=== PATIENT | male | born 2000 | race Hispanic/Latino ===

== ENCOUNTER 2021-02-24 18:02 | Emergency (ER) | payer SELFPAY ==
[2021-02-24] MEDS ORDERED: ALBUTEROL INHALER 60 PUFF/8 GM IH ONE (20:02)
[2021-02-24 20:24] LABS: Absolute Lymphocytes (CBC) 1.2 K/uL (0.7-4.9); Basophils % 0.4 % (0-1.3); Hematocrit 40.7 % (39.6-49.0); MPV 9.8 fL (7.6-11.3); RBC Red Blood Cell Count 4.42 M/uL (4.33-5.43)
[2021-02-24 20:26] LABS: ALT/SGPT 36 U/L (12-78); AST/SGOT 43 U/L (15-37); Albumin 3.7 g/dL (3.4-5.0); Alkaline Phosphatase 65 U/L (45-117); BUN Blood Urea Nitrogen 10 mg/dL (7-18); Bicarbonate 27 mmol/L (21-32); Bilirubin Direct 0.2 mg/dL (0-0.2); Bilirubin Total 0.9 mg/dL (0.2-1.0); Glucose Level 98 mg/dL (74-106); Magnesium 2.2 mg/dL (1.8-2.4); NT PRO-BNP 11 pg/mL (<125); Potassium 3.5 mmol/L (3.5-5.1); Protein, Total 7.5 g/dL (6.4-8.2); Sodium Level 137 mmol/L (136-145); Troponin (Emerg Dept Use Only) < 0.02 ng/mL (0.0-0.045)
[2021-02-24 20:45] LABS: Protime INR 1.49
[2021-02-24] MEDS ORDERED: NA CHLORIDE 0.9% 1,000 ML ONE (21:01)
--- NOTE | 2021-02-24 21:13 | RAD REPORT ---
EXAM DESCRIPTION: Izabella Single View02/24/2021 8:22 pm CLINICAL HISTORY: Chest pain COMPARISON: none FINDINGS: Lungs are mildly hazy bilaterally. The heart is normal size IMPRESSION: Lungs are mildly hazy. This is equivocal for a mild bilateral pneumonia
--- NOTE | 2021-02-24 23:11 | EDPHYS ---
Physician Documentation [facility] Name: Sheldon Phillips Age: 21 yrs Sex: Male : 2000 Arrival Date: 02/24/2021 Time: 18:05 Bed 19 Private MD: ED Physician Brodie Nye HPI: 02/24 20:11 This 21 yrs old Male presents to ER via Ambulatory with complaints of Covid +, mh7 Shortness Of Breath. 20:11 The patient has shortness of breath with light activity. Onset: The symptoms/episode mh7 began/occurred 3 day(s) ago. Duration: The symptoms are intermittent, with no pattern. The patient's shortness of breath is aggravated by coughing, exertion, light activity. 20:12 Associated signs and symptoms: Pertinent positives: non-productive cough, dizziness, mh7 sore throat, Pertinent negatives: chest pain, productive cough, diaphoresis, fever, hemoptysis, loss of consciousness, nausea, numbness in extremities, visual changes, vomiting. Severity of symptoms: At their worst the symptoms were moderate yesterday, in the emergency department the symptoms have improved moderately. States that he had a positive COVID test today at [facility].. Historical: - Allergies: 18:12 No Known Allergies; ca1 - Home Meds: 18:12 None [Active]; ca1 - PMHx: 18:12 Asthma; ca1 - PSHx: 18:12 None; ca1 - Immunization history:: Client reports having NOT received the Covid vaccine. Flu vaccine is not up to date. - Social history:: Smoking status: Patient denies any tobacco usage or history of. ROS: 20:12 Constitutional: Negative for fever, chills, and weight loss, Eyes: Negative for injury, mh7 pain, redness, and discharge, Neck: Negative for injury, pain, and swelling, Cardiovascular: Negative for chest pain, palpitations, and edema, Abdomen/GI: Negative for abdominal pain, nausea, vomiting, diarrhea, and constipation, Back: Negative for injury and pain, : Negative for injury, bleeding, discharge, and swelling, MS/Extremity: Negative for injury and deformity, Skin: Negative for injury, rash, and discoloration, Neuro: Negative for headache, weakness, numbness, tingling, and seizure, Psych: Negative for depression, anxiety, suicide ideation, homicidal ideation, and hallucinations, Allergy/Immunology: Negative for hives, rash, and allergies, Endocrine: Negative for neck swelling, polydipsia, polyuria, polyphagia, and marked weight changes, Hematologic/Lymphatic: Negative for swollen nodes, abnormal bleeding, and unusual bruising. Exam: 20:12 Constitutional: This is a well developed, well nourished patient who is awake, alert, mh7 and in no acute distress. Head/Face: Normocephalic, atraumatic. Eyes: Pupils equal round and reactive to light, extra-ocular motions intact. Lids and lashes normal. Conjunctiva and sclera are non-icteric and not injected. Cornea within normal limits. Periorbital areas with no swelling, redness, or edema. ENT: Nares patent. No nasal discharge, no septal abnormalities noted. Tympanic membranes are normal and external auditory canals are clear. Oropharynx with no redness, swelling, or masses, exudates, or evidence of obstruction, uvula midline. Mucous membranes moist. Neck: Trachea midline, no thyromegaly or masses palpated, and no cervical lymphadenopathy. Supple, full range of motion without nuchal rigidity, or vertebral point tenderness. No Meningismus. Chest/axilla: Normal chest wall appearance and motion. Nontender with no deformity. No lesions are appreciated. Cardiovascular: Regular rate and rhythm with a normal S1 and S2. No gallops, murmurs, or rubs. Normal PMI, no JVD. No pulse deficits. Respiratory: Lungs have equal breath sounds bilaterally, clear to auscultation and percussion. No rales, rhonchi or wheezes noted. No increased work of breathing, no retractions or nasal flaring. Abdomen/GI: Soft, non-tender, with normal bowel sounds. No distension or tympany. No guarding or rebound. No evidence of tenderness throughout. Back: No spinal tenderness. No costovertebral tenderness. Full range of motion. Skin: Warm, dry with normal turgor. Normal color with no rashes, no lesions, and no evidence of cellulitis. MS/ Extremity: Pulses equal, no cyanosis. Neurovascular intact. Full, normal range of motion. Neuro: Awake and alert, GCS 15, oriented to person, place, time, and situation. Cranial nerves II-XII grossly intact. Motor strength 5/5 in all extremities. Sensory grossly intact. Cerebellar exam normal. Normal gait. Psych: Awake, alert, with orientation to person, place and time. Behavior, mood, and affect are within normal limits. Vital Signs: 18:10 BP 129 / 70; Pulse 108; Resp 20; Temp 97.3(TE); Pulse Ox 98% on R/A; Weight 140.61 kg ca1 (R); Height 6 ft. 1 in. (185.42 cm) (R); Pain 7/10; 19:30 BP 113 / 69; Pulse 110; Resp 25; Pulse Ox 99% ; rr5 20:30 BP 129 / 60; Pulse 98; Resp 19; Pulse Ox 100% ; rr5 21:30 BP 126 / 71; Pulse 91; Resp 18; Pulse Ox 99% ; rr5 22:30 BP 118 / 66; Pulse 97; Resp 24; Pulse Ox 100% ; rr5 23:04 BP 126 / 62; Pulse 95; Resp 22; Pulse Ox 98% ; rr5 18:10 Body Mass Index 40.90 (140.61 kg, 185.42 cm) ca1 MDM: 23:08 Differential diagnosis: Anemia Anxiety Reaction asthma, Bronchitis pneumonia, mh7 Pneumothorax Psychogenic pulmonary edema, Pulmonary Embolism reactive airway disease. Data reviewed: vital signs, nurses notes, lab test result(s), cardiac enzymes, CBC, electrolytes, EKG, radiologic studies, CT scan, plain films. Data interpreted: Pulse oximetry: on room air is 98 %. Interpretation: normal. Counseling: I had a detailed discussion with the patient and/or guardian regarding: the historical points, exam findings, and any diagnostic results supporting the discharge/admit diagnosis, lab results, radiology results, the need for outpatient follow up, to return to the emergency department if symptoms worsen or persist or if there are any questions or concerns that arise at home. Response to treatment: the patient's symptoms have resolved after treatment, the patient's blood pressure is in an acceptable range, mental status has returned to baseline, the patient no longer shows bradycardia, the patient is not short of breath, the patient is not tachycardic, the patient's pain is gone, the patient's temperature has normalized. 23:10 Patient medically screened. [facility] 02/24 19:34 Order name: Basic Metabolic Panel [facility] 02/24 19:34 Order name: CBC with Diff [facility] 02/24 19:34 Order name: LFT's [facility] 02/24 19:34 Order name: Magnesium; Complete Time: 20:33 [facility] 02/24 19:34 Order name: NT PRO-BNP; Complete Time: 20:33 [facility] 02/24 19:34 Order name: PT-INR; Complete Time: 21:05 [facility] 02/24 19:34 Order name: Troponin (emerg Dept Use Only); Complete Time: 20:33 [facility] 02/24 19:34 Order name: XRAY Chest (1 view); Complete Time: 22:37 [facility] 02/24 19:34 Order name: Basic Metabolic Panel; Complete Time: 20:33 [facility] 02/24 19:34 Order name: CBC with Automated Diff; Complete Time: 21:05 [facility] 02/24 19:34 Order name: Liver (Hepatic) Function; Complete Time: 20:33 [facility] 02/24 19:34 Order name: D-Dimer; Complete Time: 21:05 [facility] 02/24 20:11 Order name: Rapid Strep; Complete Time: 21:05 [facility] 02/24 20:51 Order name: Throat Culture [facility] 02/24 19:34 Order name: EKG; Complete Time: 19:35 [facility] 02/24 19:34 Order name: Cardiac monitoring; Complete Time: 20:46 [facility] 02/24 19:34 Order name: EKG - Nurse/Tech; Complete Time: 20:46 [facility] 02/24 19:34 Order name: IV Saline Lock; Complete Time: 20:46 [facility] 02/24 19:34 Order name: Labs collected and sent; Complete Time: 20:47 [facility] 02/24 19:34 Order name: O2 Per Protocol; Complete Time: 20:47 [facility] 02/24 19:34 Order name: O2 Sat Monitoring; Complete Time: 20:47 [facility] 02/24 21:05 Order name: CT Chest For PE Angio [facility] Administered Medications: 20:00 Drug: Albuterol HFA Inhaler 2 puffs Route: Inhalation; rr5 21:00 Follow up: Response: No adverse reaction rr5 20:43 Drug: NS 0.9% 1000 ml Route: IV; Rate: 1000 ml; Site: left antecubital; rr5 21:40 Follow up: Response: No adverse reaction; IV Status: Completed infusion; IV Intake: rr5 1000ml 23:04 Drug: AZITHromycin 500 mg Route: PO; rr5 23:28 Follow up: Response: No adverse reaction rr5 23:04 Drug: predniSONE 60 mg Route: PO; rr5 23:28 Follow up: Response: No adverse reaction rr5 Disposition: 02/24/21 23:10 Discharged to Home. Impression: COVID Pneumonia. - Condition is Stable. - Discharge Instructions: Viral Respiratory Infection, [id number], COVID-19. - Prescriptions for Zithromax Z- Monster 250 mg Oral Tablet - take 1 tablet by ORAL route as directed for 5 days Day 1 - take two (2) tablets one time. Day 2, 3, 4 , 5 take one (1) tablet once daily.; 6 tablet. Prednisone 20 mg Oral Tablet - take 2 tablet by ORAL route once daily for 5 days; 10 tablet. Albuterol Sulfate 90 mcg/actuation - inhale 1-2 puff by INHALATION route every 4-6 hours; 1 Inhaler. - Medication Reconciliation Form, Thank You Letter, Antibiotic Education, Prescription Opioid Use form. - Follow up: Private Physician; When: 1 - 2 days; Reason: Worsening of condition, Recheck today's complaints, Continuance of care, Re-evaluation by your physician. Follow up: Chava Emerson MD; When: 1 - 2 days; Reason: Worsening of condition, Recheck today's complaints. - Problem is new. - Symptoms have improved. Signatures: Dispatcher [employer] EDCO Carlos Blunt RN RN rr5 Carol Parr RN RN ca1 Brodie Nye MD MD mh7 Corrections: (The following items were deleted from the chart) 20:15 20:11 Associated signs and symptoms: Pertinent positives: non-productive cough, mh7 dizziness, mh7 23:28 23:10 02/24/2021 23:10 Discharged to Home. Impression: COVID Pneumonia. Condition is rr5 Stable. Forms are Medication Reconciliation Form, Thank You Letter, Antibiotic Education, Prescription Opioid Use. Follow up: Private Physician; When: 1 - 2 days; Reason: Worsening of condition, Recheck today's complaints, Continuance of care, Re-evaluation by your physician. Follow up: Chava Idania; When: 1 - 2 days; Reason: Worsening of condition, Recheck today's complaints. Problem is new. Symptoms have improved. mh7
--- NOTE | 2021-02-24 23:11 | ER ---
Nurse's Notes [facility] Name: Sheldon Phillips Age: 21 yrs Sex: Male : 2000 Arrival Date: 02/24/2021 Time: 18:05 Bed 19 Private MD: Diagnosis: COVID Pneumonia Presentation: 02/24 18:10 Chief complaint: Patient states: Covid+ Today. S/S started 02/20/2021. Increasing SOB, ca1 cough, headache, dizziness, chills, sore throat. Coronavirus screen: Client denies travel out of the [place] in the last 14 days. Client reports previous positive COVID test result. Date of collection: February 24, 2021 Staff notified of need for isolation. Ebola Screen: Patient negative for fever greater than or equal to 101.5 degrees Fahrenheit, and additional compatible Ebola Virus Disease symptoms Patient denies exposure to infectious person. Patient denies travel to an Ebola-affected area in the 21 days before illness onset. No symptoms or risks identified at this time. Initial Sepsis Screen: Does the patient meet any 2 criteria? No. Patient's initial sepsis screen is negative. Does the patient have a suspected source of infection? No. Patient's initial sepsis screen is negative. Risk Assessment: Do you want to hurt yourself or someone else? Patient reports no desire to harm self or others. Onset of symptoms was February 24, 2021. 18:10 Method Of Arrival: Ambulatory ca1 18:10 Acuity: FAUSTINO 3 ca1 Triage Assessment: 19:35 General: Appears in no apparent distress. comfortable, Behavior is calm, cooperative, rr5 appropriate for age. Respiratory: Onset: The symptoms/episode began/occurred gradually, the patient has mild shortness of breath. Respiratory: Airway is patent Respiratory effort is even, unlabored, Respiratory pattern is regular, symmetrical. Historical: - Allergies: 18:12 No Known Allergies; ca1 - Home Meds: 18:12 None [Active]; ca1 - PMHx: 18:12 Asthma; ca1 - PSHx: 18:12 None; ca1 - Immunization history:: Client reports having NOT received the Covid vaccine. Flu vaccine is not up to date. - Social history:: Smoking status: Patient denies any tobacco usage or history of. Screenin:40 Abuse screen: Denies threats or abuse. Denies injuries from another. Nutritional rr5 screening: No deficits noted. Tuberculosis screening: No symptoms or risk factors identified. Fall Risk IV access (20 points). Total Dickinson Fall Scale indicates No Risk (0-24 pts). Assessment: 19:35 General: Appears in no apparent distress. comfortable, Behavior is calm, cooperative, rr5 appropriate for age. 19:35 Pain: Denies pain. Neuro: Level of Consciousness is awake, alert, obeys commands, rr5 Oriented to person, place, time. Cardiovascular: Capillary refill < 3 seconds Patient's skin is warm and dry. Rhythm is sinus tachycardia. Respiratory: Reports shortness of breath cough that is COVID + Airway is patent Respiratory effort is even, unlabored, Respiratory pattern is regular, symmetrical, GI: No signs and/or symptoms were reported involving the gastrointestinal system. : No signs and/or symptoms were reported regarding the genitourinary system. EENT: No signs and/or symptoms were reported regarding the EENT system. Derm: Skin is intact, is healthy with good turgor, Skin temperature is warm. Musculoskeletal: Capillary refill < 3 seconds. 21:00 Reassessment: Patient appears in no apparent distress at this time. Patient is alert, rr5 oriented x 3, equal unlabored respirations, skin warm/dry/pink. Patient states feeling better. Patient states symptoms have improved. 22:00 Reassessment: Patient appears in no apparent distress at this time. Patient is alert, rr5 oriented x 3, equal unlabored respirations, skin warm/dry/pink. awaiting for CT result. 23:04 Reassessment: Patient appears in no apparent distress at this time. Patient is alert, rr5 oriented x 3, equal unlabored respirations, skin warm/dry/pink. able to walk around the hallway, with out reported, SPO2 97-98%, provider aware. 23:25 Reassessment: Patient appears in no apparent distress at this time. Patient is alert, rr5 oriented x 3, equal unlabored respirations, skin warm/dry/pink. discharge instruction given and explained without complaints made. Vital Signs: 18:10 BP 129 / 70; Pulse 108; Resp 20; Temp 97.3(TE); Pulse Ox 98% on R/A; Weight 140.61 kg ca1 (R); Height 6 ft. 1 in. (185.42 cm) (R); Pain 7/10; 19:30 BP 113 / 69; Pulse 110; Resp 25; Pulse Ox 99% ; rr5 20:30 BP 129 / 60; Pulse 98; Resp 19; Pulse Ox 100% ; rr5 21:30 BP 126 / 71; Pulse 91; Resp 18; Pulse Ox 99% ; rr5 22:30 BP 118 / 66; Pulse 97; Resp 24; Pulse Ox 100% ; rr5 23:04 BP 126 / 62; Pulse 95; Resp 22; Pulse Ox 98% ; rr5 18:10 Body Mass Index 40.90 (140.61 kg, 185.42 cm) ca1 ED Course: 18:05 Patient arrived in ED. ds1 18:12 Triage completed. ca1 18:12 Arm band placed on right wrist. ca1 19:23 Brodie yNe MD is Attending Physician. mh7 19:35 Carlos Blunt, GEORGINA is Primary Nurse. rr5 19:35 Patient has correct armband on for positive identification. Bed in low position. Call rr5 light in reach. 19:35 bus driver/monitor on. Pulse ox on. NIBP on. rr5 20:17 Inserted saline lock: 20 gauge in left antecubital area, using aseptic technique. Blood dh4 collected. 20:22 XRAY Chest (1 view) In Process Unspecified. EDMS 20:58 Notified ED physician of a critical lab result(s). d dimer 1348 arnulfo from laboratory rr5 called. 22:03 CT Chest For PE Angio In Process Unspecified. EDMS 23:10 Chava Emerson MD is Referral Physician. mh7 23:26 No provider procedures requiring assistance completed. IV discontinued, intact, rr5 bleeding controlled, No redness/swelling at site. Pressure dressing applied. Administered Medications: 20:00 Drug: Albuterol HFA Inhaler 2 puffs Route: Inhalation; rr5 21:00 Follow up: Response: No adverse reaction rr5 20:43 Drug: NS 0.9% 1000 ml Route: IV; Rate: 1000 ml; Site: left antecubital; rr5 21:40 Follow up: Response: No adverse reaction; IV Status: Completed infusion; IV Intake: rr5 1000ml 23:04 Drug: AZITHromycin 500 mg Route: PO; rr5 23:28 Follow up: Response: No adverse reaction rr5 23:04 Drug: predniSONE 60 mg Route: PO; rr5 23:28 Follow up: Response: No adverse reaction rr5 Intake: 21:40 IV: 1000ml; Total: 1000ml. rr5 Outcome: 23:10 Discharge ordered by MD. nam7 23:26 Discharged to home ambulatory. rr5 23:26 Condition: stable 23:26 Discharge instructions given to patient, Instructed on discharge instructions, follow up and referral plans. medication usage, Demonstrated understanding of instructions, follow-up care, medications, Prescriptions given X 3. 23:28 Patient left the ED. rr5 Signatures: Dispatcher [employer] EDPR Delores Fournier ds1 Carlos Blunt RN RN rr5 Carol Parr RN RN ca1 Davy Valenzuela 4 Brodie Nye MD MD 7 Corrections: (The following items were deleted from the chart) 18:13 18:10 BP 129 / 70; Pulse 113bpm; Resp 20bpm; Pulse Ox 98% RA; Temp 97.3F Temporal; ca1 140.61 kg Reported; Height 6 ft. 1 in. Reported; BMI: 40.9; Pain 7/10; ca1
[2021-02-24] MEDS ORDERED: AZITHROMYCIN 250 MG TAB ONE (23:19)
[2021-02-24] MEDS ORDERED: predniSONE 20 MG TAB ONE (23:20)
[2021-02-24 23:36] VITALS: TEMP 97.3
[2021-02-24 23:43] VITALS: BP 126/62; O2SAT 98
--- NOTE | 2021-02-25 10:47 | EKG ---
Test Date: 2021-02-24 Test Time: 20:07:17 Psych Coordinator: MARIPOSA MEASUREMENT RESULTS: Intervals: Rate: 101 MT: 152 QRSD: 96 QT: 318 QTc: 412 Pana: P: 51 MT: 152 QRS: 61 T: 29 INTERPRETIVE STATEMENTS: Sinus tachycardia Otherwise normal ECG No previous ECG available for comparison Electronically Signed On 02-25-21 10:46:37 CDT by William Tidwell
--- NOTE | 2021-02-26 11:09 | RAD REPORT ---
EXAM DESCRIPTION: CT - Chest For Pe Angio - 02/25/2021 3:19 am CLINICAL HISTORY: 21 years Male SOB TECHNIQUE: Contiguous axial images obtained through the chest were obtained from the thoracic inlet to the level of the upper abdomen during the pulmonary arterial phase of intravenous contrast adminis tration. Coronal and sagittal reformatted and multiplanar MIP images provided. This CT exam was performed according to our departmental dose-optimization program, which includes on e or more of the following dose reduction techniques: automated exposure control, adjustment of the m A and/or kV according to patient size, and/or use of iterative reconstruction technique. COMPARISON: No prior exams provided for comparison. FINDINGS: Although no large central pulmonary embolus is identified, small segmental and subsegmenta l pulmonary emboli are not excluded on this examination, which is limited by patient motion. The thoracic aorta is normal without aneurysm or dissection. The heart is normal in size without cathy cardial effusion. There are patchy, predominantly peripheral airspace opacities scattered throughout both lungs. No ple ural effusion or pneumothorax. The central airways are patent. No lymphadenopathy in the chest. Steatosis of the liver. No acute osseous abnormality. IMPRESSION: No large central pulmonary embolus. Cannot exclude small pulmonary emboli due to patient motion. Commonly reported imaging features of Covid 19 pneumonia are present. Other processes such as influen za pneumonia and organizing pneumonia, as can be seen with drug toxicity and connective tissue diseas e, can cause similar imaging pattern. PneTyp Electronically signed by: Liz Ordoñez MD 02/24/2021 10:37 PM CDT Due to temporary technical issues with the PACS/Fluency reporting system, reports are being signed by the in house radiologists without review as a courtesy to insure prompt reporting. The interpreting radiologist is fully responsible for the content of the report.
== END 2021-02-24 23:28 | disposition home or self-care (01) ==
LOC: ER 18:02
DX: U07.1 COVID-19 (principal); J12.82 Pneumonia due to coronavirus disease 2019; J45.909 Unspecified asthma, uncomplicated
CPT/HCPCS: 36415; 71045; 71275; 80048; 80076; 83735; 83880; 84484; 85025; 85379; 85610; 87070; 87081; 93005; 96360; 99285; J7030; J7512; Q9967